=== PATIENT | female | born 1935 | race Asian ===

== ENCOUNTER 2017-08-23 17:51 | Emergency (ER) | payer OTHER ==
[~2017-08-23] VITALS: Ht 157.5 cm; Wt 63.6 kg
[~2017-08-23 17:51] MED LIST: ACET650S14 PR; ATEN50TA PO; CLON0.1T PO; FURO20 PO; GLIP5TAB11 PO; HYDR-4174 PO; LISI-662 PO; METF500T4 PO
[2017-08-23 19:12] LABS: BASOPHILS % (AUTO) 0.6 % (0.0-2.0); EOSINOPHILS % (AUTO) 2.4 % (1.0-6.0); HEMATOCRIT 34.6 % (36-46); LYMPHOCYTES # (AUTO) 1.4 K/uL (1.0-4.8); LYMPHOCYTES % (AUTO) 28.2 % (22.0-44.0); MEAN CORPUSCULAR HEMOGLOBIN 30.7 pg (26.0-34.0); MEAN CORPUSCULAR HGB CONC 34.6 G/dL (31.0-37.0); MEAN CORPUSCULAR VOLUME 89 fL (80-100); MONOCYTES # (AUTO) 0.4 K/uL (0.1-1.0); MONOCYTES % (AUTO) 8.6 % (2.0-9.0); NEUTROPHILS % (AUTO) 60.2 % (40.0-70.0); PLATELET COUNT (AUTO) 149 K/uL (150-450); RED CELL DISTRIBUTION WIDTH 14.5 % (11.5-14.5)
[2017-08-23 19:27] LABS: ANION GAP 5 mmol/L (8-16); CALCIUM, TOTAL 8.4 mg/dL (8.8-10.5); CARBON DIOXIDE 29 mmol/L (22-29); CHLORIDE 97 mmol/L (98-107); CREATININE 1.07 mg/dL (0.60-1.30); GLOMERULAR FILTR. RATE CALC 49 mL/min (>60); POTASSIUM 4.4 mmol/L (3.5-5.1); SODIUM SERUM 131 mmol/L (136-145); UREA NITROGEN, BLOOD 13 mg/dL (7-18)
[2017-08-23 19:29] LABS: INR 1.1 (0.9-1.1); PROTHROMBIN TIME 11.2 SEC (9.4-11.6)
[2017-08-23 19:36] LABS: ALANINE AMINOTRANSFERASE 15 U/L (12-78); ASPARTATE AMINOTRANSFERASE 20 U/L (15-37); BILIRUBIN,TOTAL 0.5 mg/dL (0.1-1.0); CREATINE KINASE, TOTAL 42 U/L (26-192)
[2017-08-23 19:40] LABS: B-TYPE NATRIURETIC PEPTIDE 124 pg/mL (0-100)
[2017-08-23] MEDS ORDERED: ALBUTEROL SULFATE 2.5 MG/0.5 ML NEB SOLUTION NEB ONE (19:50)
[2017-08-23] MEDS ORDERED: 0.9% SODIUM CHLORIDE 5 ML NEB SOLUTION NEB ONE (19:58)
[2017-08-23 20:16] LABS: ADD UA MICROSCOPIC NO; APPEARANCE,URINE CLEAR (CLEAR); GLUCOSE, URINE (UA) NEGATIVE (NEGATIVE); KETONES,URINE NEGATIVE (NEGATIVE); LEUKOCYTE ESTERASE ,URINE NEGATIVE (NEGATIVE); OCCULT BLOOD,URINE NEGATIVE (NEGATIVE); PH,URINE 6.5 (5.0-8.0); PROTEIN,URINE NEGATIVE (NEGATIVE)
[2017-08-23] MEDS ORDERED: LEVOFLOXACIN 500 MG/D5% WATER 100 ML IV ONE (20:30)
[2017-08-23] MEDS ORDERED: FUROSEMIDE 40 MG/4 ML VIAL IVP ONE (20:30)
[2017-08-23 21:19] VITALS: BP 153/81
== END 2017-08-23 21:29 | disposition home or self-care (01) ==
LOC: EMS 17:53
DX: I11.0 Hypertensive heart disease with heart failure (principal); I50.9 Heart failure, unspecified; J40 Bronchitis, not specified as acute or chronic; E11.9 Type 2 diabetes mellitus without complications; E78.00 Pure hypercholesterolemia, unspecified
CPT/HCPCS: 36415; 71010; 80053; 81003; 82550; 83880; 84484; 85025; 85610; 85730; 93005; 94640; 96365; 96375; 99285; J1940; J1956

== ENCOUNTER 2018-08-19 21:31 | Emergency (ER) | payer OTHER ==
[~2018-08-19] VITALS: Ht 154.9 cm; Wt 72.7 kg
[~2018-08-19 21:31] MED LIST changes: +METF-960 PO; -METF500T4 PO
[2018-08-19 21:48] LABS: GLUCOSE,POINT OF CARE 134 MG/DL (70-110)
[2018-08-19] MEDS ORDERED: POTA8CAP17 PEG (21:49)
[2018-08-19] MEDS ORDERED: CALC-26 PO (21:49)
[2018-08-19] MEDS ORDERED: VITAD1000 PO (21:49)
[2018-08-19] MEDS ORDERED: AMLO2.5T3 PO (21:49)
[2018-08-19 23:26] VITALS: BP 144/69
== END 2018-08-19 23:29 | disposition home or self-care (01) ==
LOC: EMS 21:32
DX: I10 Essential (primary) hypertension (principal); F41.9 Anxiety disorder, unspecified; E78.00 Pure hypercholesterolemia, unspecified; E11.9 Type 2 diabetes mellitus without complications; Z79.84 Long term (current) use of oral hypoglycemic drugs; Z79.899 Other long term (current) drug therapy

== ENCOUNTER 2018-11-26 18:26 | Emergency (ER) | payer OTHER ==
[~2018-11-26] VITALS: Ht 157.5 cm; Wt 63.6 kg
[~2018-11-26 18:26] MED LIST changes: -ACET650S14 PR; +AMLO2.5T4 PO; +CALC-26 PO; -GLIP5TAB11 PO; -HYDR-4174 PO; +POTA8CAP17 PEG; +VITAD1000 PO
[2018-11-26 19:19] LABS: GLUCOSE,POINT OF CARE 241 MG/DL (70-110)
[2018-11-26 21:48] LABS: BASOPHILS % (AUTO) 0.6 % (0.0-2.0); EOSINOPHILS % (AUTO) 0.6 % (1.0-6.0); HEMATOCRIT 34.3 % (36-46); HEMOGLOBIN 11.7 g/dL (12.0-16.0); LYMPHOCYTES # (AUTO) 1.1 K/uL (1.0-4.8); LYMPHOCYTES % (AUTO) 20.4 % (22.0-44.0); MEAN CORPUSCULAR HEMOGLOBIN 29.2 pg (26.0-34.0); MEAN CORPUSCULAR HGB CONC 34.1 G/dL (31.0-37.0); MEAN CORPUSCULAR VOLUME 86 fL (80-100); MONOCYTES # (AUTO) 0.5 K/uL (0.1-1.0); MONOCYTES % (AUTO) 9.8 % (2.0-9.0); NEUTROPHILS # (AUTO) 3.6 K/uL (1.8-7.7); NEUTROPHILS % (AUTO) 68.6 % (40.0-70.0); PLATELET COUNT (AUTO) 158 K/uL (150-450); RED BLOOD CELL COUNT(AUTO) 4.01 MIL/uL (4.00-5.20); RED CELL DISTRIBUTION WIDTH 15.1 % (11.5-14.5)
[2018-11-26] MEDS ORDERED: ACETAMINOPHEN 500 MG TABLET PO ONE (22:00)
[2018-11-26] MEDS ORDERED: GuaiFENesin/CODEINE [SUGAR FREE] 200-20MG/10 ML SYRUP UDCUP PO ONE (22:00)
[2018-11-26 22:04] LABS: ALANINE AMINOTRANSFERASE 6 U/L (12-78); ALBUMIN 2.6 g/dL (3.4-5.0); ALKALINE PHOSPHATASE 92 U/L (46-116); ANION GAP 5 mmol/L (8-16); ASPARTATE AMINOTRANSFERASE 17 U/L (15-37); BILIRUBIN,TOTAL 0.8 mg/dL (0.1-1.0); CARBON DIOXIDE 26 mmol/L (22-29); CHLORIDE 93 mmol/L (98-107); CREATININE 0.78 mg/dL (0.60-1.30); GLUCOSE,RANDOM 269 mg/dL (70-110); POTASSIUM 3.1 mmol/L (3.5-5.1); TOTAL PROTEIN, SERUM 10.8 g/dL (6.4-8.2); UREA NITROGEN, BLOOD 8 mg/dL (7-18)
[2018-11-26 22:20] LABS: GLOMERULAR FILTR. RATE CALC > 60 mL/min (>60); SODIUM SERUM 124 mmol/L (136-145)
[2018-11-26 22:26] LABS: INFLUENZA TYPE A NEGATIVE FOR TYPE A (NEGATIVE); INFLUENZA TYPE B POSITIVE FOR TYPE B (NEGATIVE)
[2018-11-26] MEDS ORDERED: SODIUM CHLORIDE 0.9% 1,000 ML IV ONE (22:45)
[2018-11-26 23:37] VITALS: BP 141/75
== END 2018-11-27 00:21 | disposition home or self-care (01) ==
LOC: EMS 18:27
DX: J11.1 Influenza due to unidentified influenza virus with other respiratory manifestations (principal); E11.9 Type 2 diabetes mellitus without complications; E78.00 Pure hypercholesterolemia, unspecified; I10 Essential (primary) hypertension; Z79.84 Long term (current) use of oral hypoglycemic drugs; Z79.899 Other long term (current) drug therapy
CPT/HCPCS: 36415; 71046; 80053; 82962; 85025; 87804; 93005; 99284; J7030; 96360